=== PATIENT | female | born 1985 | race African-American/Black ===

== ENCOUNTER 2025-03-01 02:32 | Emergency (ER) | payer OTHER, SELFPAY ==
[2025-03-01 02:34] VITALS: BP 142/86
[2025-03-01 03:11] VITALS: BMI 32.0
[2025-03-01 03:15] VITALS: BP 131/85
--- NOTE | 2025-03-01 03:16 | ED.GENMED ---
History of Present Illness
General
Chief Complaint: Breathing Problem
Source: patient
Time Seen by Provider: 03/01/25 03:04
History of Present Illness
History of Present Illness:
39-year-old female presents to the emergency room complaining of feeling as if she gasps for air as she is falling asleep. When she is awake the patient does not have any respiratory complaints. However she states while she is starting to drift
off to sleep she has a sensation that she is not breathing and has to gasp for air. Her heart is pounding at this time as well. No fever or chills.
Past History
Past History
ED Past Medical History: Arrthythmia (PAC's) and Psychiatric (anxiety, depression)
ED Past Surgical History: Other (Lipoma removal); Negative Appendectomy, Bowel resection, Brain or Cardiac
Social History
Tobacco: Smoker
Alcohol: None
Drug: None
Personal: Single
Living: with family
Employment: Employed
Family History
Family History: Negative Diabetes, Hypertension or CAD
Phy Exam
Physical Exam
Physical Exam:
General: Awake, Alert, Oriented X3. No acute distress.
Vitals: unremarkable
Head: Atraumatic
Eyes: Pupils equal, EOMI
Throat: Airway intact, no exudates
Neck: Trachea midline
Lungs: Clear and equal b/l
Heart: Regular rate, no murmurs
Abd: Soft, Nontender, No pulsatile mass
Neuro: Nonfocal
Skin: Warm, dry, no rash
Extremities: pulses equal b/l, no edema
Course
Orders/Labs/Results
Orders:
Orders
03/01/25 03:16
Electrocardiogram (*1) Urgent
Reason for Study: Chest Pain
EKG- Treatment ONCE
CR Chest - 2 Views Urgent
Comment:
Reason For Exam: sob
Vital Signs
Initial and Last Documented VS:
Initial Vital Signs
Temp Pulse Resp BP Pulse Ox
97.6 F 84 20 142/86 100
03/01/25 02:34 03/01/25 02:34 03/01/25 02:34 03/01/25 02:34 03/01/25 02:34
Last Documented Vital Signs
Temp Pulse Resp BP Pulse Ox
97.6 F 70 17 107/71 99
03/01/25 02:34 03/01/25 04:50 03/01/25 04:50 03/01/25 04:50 03/01/25 04:50
MDM/Problems Addressed
Differential Diagnosis Includes:
PVCs, PACs, anxiety
MDM/Problems Addressed:
Patient complains of having a gasping sensation when she is falling asleep. Chest x-ray and EKG normal. Patient had blood work recently for the visit at [place].
*Radiology
Radiology exam reviewed: preliminary read by ED provider (No acute abnormality)
*Pulse Oximetry
Patient hypoxic: no
*EKG
Interpreted by ED Provider?: Yes
Heart Rate: 70
Rate: normal
Rhythm: sinus
Reeders: normal axis
Interval: normal interval
QRS Pattern: normal QRS
Ischemia: no ischemia
*Hedis Review Nurse Interpretation
Rate: normal
Interpretation: normal
Rhythm: sinus
*Critical Care Note
Total Time (30-74mins, 75-104mins- exclusive of procedures): Not Applicable
ED Attending Note
-
Portions of this chart may have been created with voice recognition software.� Occasional wrong word or��sound alike� substitutions may have occurred due to the inherent limitations of voice recognition software.
Discharge Plan
Departure
Patient Disposition: Home (Routine Discharge)
Date of Disposition: 03/01/25
Time of Disposition: 04:23
Patient with high blood pressure during this ER visit?: No
Condition: Good
Discharge Problem:
Dyspnea
Instructions: Shortness of breath in adults - ED discharge instructions
Prescriptions:
No Action
clonazepam [Klonopin] 0.5 mg Tablet
0.5 mg PO BID
sertraline [Zoloft] 50 mg Tablet
75 mg PO DAILY
Referrals:
Arcelia Kaplan CRNP [Family Provider]
Activity Restrictions/Additional Instructions:
Your chest x-ray here looks normal. Your EKG also looks normal. We have seen no heart rhythm problems on the monitor. We can reassure you that there is no evidence for a serious problem. Follow-up with your primary care provider.
Interventions
Interventions:
*Risk Screen - Suicide Last Done: 03/01/25 02:34
*General Assessment Last Done: 03/01/25 03:11
*Neglect/Abuse Screening Last Done: 03/01/25 02:34
*ED- Fall Risk Assessment Last Done: 03/01/25 03:11
*ED COVID-19 Vaccine History Last Done: 03/01/25 03:11
*Nursing Disposition Last Done: 03/01/25 04:50
ED- Cardiac Assessment Last Done: 03/01/25 03:11
ED- Pulmonary Assessment Last Done: 03/01/25 03:11
Discharge Date and Time
Discharge Date/Time: 03/01/25 04:50
Print Language: SAUDI ARABIAN
[2025-03-01 04:50] VITALS: BP 107/71
== END 2025-03-01 04:50 | disposition home or self-care (01) ==
LOC: EMR 02:32
PROVIDERS: EMERGENCY PHYSICIAN Emergency Medicine; FAMILY PHYSICIAN Nurse Practitioner Family
DX: R06.00 Dyspnea, unspecified (principal); I49.1 Atrial premature depolarization; F41.8 Other specified anxiety disorders; F17.200 Nicotine dependence, unspecified, uncomplicated; Z90.49 Acquired absence of other specified parts of digestive tract
CPT/HCPCS: 99283; 71046; 93005

== ENCOUNTER 2025-03-04 02:36 | Emergency (ER) | payer OTHER, SELFPAY ==
[2025-03-04 02:41] VITALS: BP 124/82
[2025-03-04] MEDS: NSS 1000 IV (03:36)
[2025-03-04 03:37] VITALS: BMI 35.6
[2025-03-04 03:44] VITALS: BP 122/84
[2025-03-04 04:12] LABS: % Basophils 0.9 % (0-2); % Eosinophils 1.6 % (0-6); % Immature Granulocytes 0.3 % (0-0.5); % Lymphocytes 44.7 % (20.5-51.1); % Monocytes 6.2 % (1.7-9.3); % Neutrophils 46.3 % (42.2-75.2); Absolute Basophils 0.1 10^3/uL (0-0.2); Absolute Eosinophils 0.1 10^3/uL (0-0.7); Absolute Lymphocytes 3.1 10^3/uL (1.2-3.4); Absolute Monocytes 0.4 10^3/uL (0.1-0.6); Absolute Neutrophils 3.2 10^3/uL (1.4-6.5); Hematocrit 38.9 % (37.0-47.0); Hemoglobin 13.7 g/dL (12.0-16.0); Mean Corp Hgb Conc. 35.2 g/dL (33.0-37.0); Mean Corpuscular Hgb 27.6 pg (27.0-31.0); Mean Corpuscular Volume 78.4 fL (81.0-99.0); Mean Platelet Volume 11.3 fL (7.4-10.4); Nucleated Red Blood Cells % 0 %; Platelet Count 236 10^3/uL (130-400); Red Blood Cell Count 4.96 10^6/uL (4.20-5.40); Red Cell Dist. Width 12.4 % (11.5-14.5)
[2025-03-04 04:21] LABS: INR 0.93
[2025-03-04 04:22] LABS: APTT 27.2 Sec (23.4-35.0)
[2025-03-04] MEDS: ATIVAN 0.5 MG PO (04:26)
[2025-03-04 04:41] VITALS: BP 116/74
[2025-03-04 04:41] LABS: Erythrocyte Sed Rate 4 mm/hour (0-20)
[2025-03-04 04:42] LABS: Blood Urea Nitrogen 13 mg/dl (7-17); Calcium 9.9 mg/dl (8.4-10.2); Carbon Dioxide 23 mmol/L (22-30); Chloride 110 mmol/L (98-107); Estimated Creatinine Clearance > 125 ml/min; Glucose 112 mg/dl (70-99); Sodium 140 mmol/L (135-145); eGFR > 60.00
--- NOTE | 2025-03-04 05:14 | ED.GENMED ---
History of Present Illness
General
Chief Complaint: Fainting Sensation
Source: patient
Exam Limitations: none
Time Seen by Provider: 03/04/25 02:49
History of Present Illness
History of Present Illness:
Note:
CHIEF COMPLAINT(S)
Persistent dizziness and nausea since an adverse reaction to Reglan and Benadryl administration.
HISTORY OF PRESENT ILLNESS
The patient is a 39-year-old female who presents with persistent dizziness and nausea, which began following an emergency room visit on February 22. She initially experienced vertigo for several days, worsening to severe nausea and feeling faint during
her sons baseball game, prompting her to seek medical attention at [facility] [place] [facility] [place]. She was administered intravenous Reglan and Benadryl, following which she experienced significant adverse reactions described as a psychotic episode. The patient
reports 'feeling like Im crawling out of my skin,' exhibiting aggressive behavior toward medical staff, and experiencing extreme restlessness. She states, 'My reaction was like a psychosis. I wasnt even in my right mind.'
Since this episode, the patient has experienced daily panic attacks and was admitted to [facility] psychiatric unit for two days post-reaction due to her symptoms. Following discharge against medical advice, she continued to experience persistent
symptoms. The patient has consulted a automatic furnace operator who will implement a Holter monitor to further evaluate potential cardiac involvement, suspecting dysfunction in her parasympathetic nervous system potentially exacerbated by Reglan. The patient
voices concern over persistent lightheadedness, describing it as feeling like 'decreased oxygen to my brain,' although vital signs remain stable.
The patient reports a history of panic attacks but notes a distinct difference in her current presentation post-Replan. She has not undergone recent cranial imaging, and basic laboratory testing has been proposed to rule out other potential causes.
There is consideration of potential gastrointestinal involvement due to concurrent abdominal discomfort and previously diagnosed fatty liver. The patient has expressed trepidation about using certain local facilities due to past experiences.
SOCIAL DETERMINANTS AFFECTING HEALTH
The patient reports financial concerns about medical evaluations, such as the upcoming Holter monitor, describing them as 'expensive.' Additionally, there is concern about healthcare accessibility, affected by past dismissals by certain providers.
REVIEW OF SYSTEMS
- Neurological: Reports persistent dizziness; emerged post-medication administration.
- Psychiatric: Experiencing daily panic attacks following adverse event.
- Cardiovascular: Episodes of faintness and lightheadedness, but no reported palpitations or chest pain.
- Gastrointestinal: Reports accompanying abdominal discomfort; history suggests fatty liver.
PHYSICAL EXAM
- Nursing notes reviewed and vital signs reviewed.
- Neurological: No acute deficits observed; stable baseline cognition.
- General: No acute distress; oriented and cooperative during exam.
PROBLEM LIST
- Acute: Adverse reaction to Reglan and Benadryl resulting in persistent dizziness, nausea, and psychological disturbances.
- Chronic: History of panic attacks.
PLAN
1. Conduct basic lab work and cranial computed tomography (CT) scan to assess neurological and systemic contributors to symptoms.
2. Initiate intravenous fluid administration to support symptom relief.
3. Implement Holter monitor for cardiac evaluation.
4. Recommend gastroenterology follow-up for abdominal symptoms and evaluation of known fatty liver.
5. Educate patient about the potential side effects of medications and provide reassurance about ongoing symptoms.
6. Discuss potential financial assistance or alternative options for managing the cost of medical evaluations.
DIFFERENTIAL DIAGNOSIS
The Differential Diagnosis includes, in no particular order and is not limited to:
1. Medication-induced extrapyramidal symptoms.
2. Panic disorder with new onset somatic symptoms.
3. Vestibular neuritis.
4. Inner ear disorders, such as labyrinthitis.
5. Autonomic nervous system dysfunction.
6. Migraine-associated vertigo.
7. Thyroid dysfunction.
8. Dysautonomia.
9. Cardiac arrhythmia.
10. Gastrointestinal disturbance contributing to systemic symptoms.
CARE-UPDATE
03/04/25 - 04:00
The patient reports experiencing episodes of vertigo that include abnormal sensations such as staring off and difficulty explaining the feelings. They have previously used medications like Qualmiston and Adamant to help with calming but express
concerns about potential addiction and withdrawal symptoms with Adamgael. They are considering short-term use of medication to manage their symptoms effectively.
Disposition:
SUMMARY OF ENCOUNTER
The patient is a 39-year-old female who presented to the emergency department reporting dizziness, suspecting it to be a reaction to previous medication administration. The symptoms of dizziness and nausea have persisted since an incident involving
an adverse reaction to Reglan and Benadryl. During her visit, she experienced an episode described as a panic attack, which resolved during the stay.
DISPOSITION
The patient expressed a desire to be discharged home and was discharged in an improved condition.
PLAN
The plan includes the scheduled implementation of a Holter monitor by her automatic furnace operator.
MEDICAL DECISION MAKING
The patient presented with a complex case of dizziness possibly linked to a medication reaction and a resolved panic attack during the visit. Her medical care required consideration of multiple potential causes for her symptoms, and upcoming cardiac
monitoring highlights the intricate nature of her symptoms requiring further evaluation. Decisions during the visit were impacted by the patients expressed wish to be discharged, and her improved state facilitated this outcome.
Past History
Past History
ED Past Medical History: Arrthythmia (PAC's) and Psychiatric (anxiety, depression)
ED Past Surgical History: Other (Lipoma removal); Negative Appendectomy, Bowel resection, Brain or Cardiac
Social History
Tobacco: Smoker
Alcohol: None
Drug: None
Personal: Single
Living: with family
Employment: Employed
Family History
Family History: Negative Diabetes, Hypertension or CAD
Review of Systems
Review of Systems
Allergies reviewed?: Yes
All Other Systems: ROS reviewed and negative except as documented in HPI and ROS
Neurological: Reports dizzy and other (Lightheadedness)
Phy Exam
General Physical Exam
General Presentation: well appearing and no apparent distress
General Skin: warm and dry
General Habitus: normal
General Mental: alert
General Hydration: appears well hydrated
ENT Exam
ENT Exam: EOMI, pharynx normal, neck supple and normocephalic
Eye Exam
Eye Exam: PERRL, cornea clear and conjunctiva normal
Cardiovascular Exam
Cardiovascular Exam: regular rate/rhythm, no edema, no murmur and normal peripheral pulses
Pulmonary Exam
Pulmonary Exam: lungs clear, no respiratory distress, no rales, no crackles, no rhonchi, no stridor, no wheezing and no cough
Gastrointestinal Exam
Gastrointestinal Exam: normal bowel sounds, non tender, soft, no organomegaly, no pulsatile mass and non distended
Neurological Exam
Neurological Exam: alert, oriented x3, no motor deficits and speech normal
Musculoskeletal Exam
Musculoskeletal Exam: full ROM and no edema
Skin Exam
Skin Exam: normal color, warm/dry, no rash and no petechia
Psychiatric Exam
Psychiatric Exam: anxious
Course
Orders/Labs/Results
Orders:
Orders
03/04/25 03:08
CT Head W/o Iv Contrast Urgent
Comment:
Reason For Exam: dizziness/lightheadedness
0.9% Sodium Chloride 1000 ml [Nss] 1,000 ml IV BOLUS
03/04/25 03:09
Electrocardiogram (*1) Stat
Reason for Study: Other
Other Reason for Exam: neuro symptoms
EKG- Treatment ONCE
Urinalysis Reflex To Culture Urgent
03/04/25 03:33
Basic Metabolic Panel Urgent
Complete Blood Count/With Diff Urgent
Erythrocyte Sed Rate Urgent
PTT Urgent
Prothrombin Time Urgent
03/04/25 03:56
Diazepam [Valium] 2 mg PO NOW STA
03/04/25 04:00
Lorazepam [Ativan] 0.5 mg PO NOW STA
Abnormal Lab Results
03/04/25
03:33
MCV 78.4 L fL
(81.0-99.0)
MPV 11.3 H fL
(7.4-10.4)
Chloride 110 H mmol/L
(98-107)
Glucose 112 H mg/dl
(70-99)
03/04/25 03:33
03/04/25 03:33
Vital Signs
Initial and Last Documented VS:
Initial Vital Signs
Temp Pulse Resp BP Pulse Ox
98.6 F 76 21 124/82 99
03/04/25 02:41 03/04/25 02:41 03/04/25 02:41 03/04/25 02:41 03/04/25 02:41
Last Documented Vital Signs
Temp Pulse Resp BP Pulse Ox
98.6 F 86 18 116/74 99
03/04/25 02:41 03/04/25 04:41 03/04/25 04:41 03/04/25 04:41 03/04/25 04:41
*Critical Care Note
Total Time (30-74mins, 75-104mins- exclusive of procedures): Not Applicable
ED Attending Note
-
Portions of this chart may have been created with voice recognition software.� Occasional wrong word or��sound alike� substitutions may have occurred due to the inherent limitations of voice recognition software.
Discharge Plan
Departure
Patient Disposition: Home (Routine Discharge)
Date of Disposition: 03/04/25
Time of Disposition: 05:17
Patient with high blood pressure during this ER visit?: Yes
Condition: Good
Discharge Problem:
Medication reaction, Lightheadedness
Instructions: Near Fainting (DC), BLOOD PRESSURE
Prescriptions:
No Action
clonazepam [Klonopin] 0.5 mg Tablet
0.5 mg PO BID
sertraline [Zoloft] 50 mg Tablet
75 mg PO DAILY
Referrals:
UNKNOWN - PT DOES,NOT KNOW [Family Provider]
Activity Restrictions/Additional Instructions:
Thank You for choosing [facility].
It was a pleasure meeting you and taking part in your care. We hope for your continued healing and wellness.
Please read discharge instructions in their entirety. However, they are for general education and may not describe your exact diagnosis at discharge. Information on your ER visit and medical conditions were discussed with you along with appropriate
follow up information...
If indicated, please take your medications as instructed and indicated on discharge paperwork.
Please schedule a follow up appointment as directed. Call to schedule an appointment
Please return to the emergency department with ANY change in, persisting, or worsening of symptoms. If any of your symptoms do not improve, or persist, or become more severe within 6-12 hours, please return to the emergency department for further
care.
Please return to the emergency department if you develop a headache, neck pain/stiffness, fever greater than 100.4F, chest pain, shortness of breath, persistent nausea, vomiting, slurred speech, difficulty walking, numbness/tingling, weakness, signs
of infection or any other symptoms that are worrisome to you.
If you have any questions or concerns please do not hesitate to call the Hospital at or E-mail me directly at [email or web address]
Interventions
Interventions:
*Risk Screen - Suicide Last Done: 03/04/25 02:41
ED- Neurological Assessment Last Done: 03/04/25 03:37
ED- Cardiac Assessment Last Done: 03/04/25 03:37
Discharge Date and Time
Print Language: IRAQI
[2025-03-04 05:26] VITALS: BP 118/67
== END 2025-03-04 05:28 | disposition home or self-care (01) ==
LOC: EMR 02:36
PROVIDERS: EMERGENCY PHYSICIAN Student in an Organized Health Care Education/Training Program
DX: R42 Dizziness and giddiness (principal); T50.905A Adverse effect of unspecified drugs, medicaments and biological substances, initial encounter; Y92.9 Unspecified place or not applicable; I49.1 Atrial premature depolarization; F41.8 Other specified anxiety disorders; F17.200 Nicotine dependence, unspecified, uncomplicated; Z59.86 Financial insecurity; Z90.49 Acquired absence of other specified parts of digestive tract
CPT/HCPCS: 99284; 70450; 80048; 85025; 85610; 85652; 85730; 93005